=== PATIENT | female | born 1935 | race Caucasian/White ===

== ENCOUNTER 2023-11-23 12:59 | Outpatient (AMB) | payer MEDICARE, SELFPAY ==
[2023-11-23 13:08] VITALS: BP 131/69; PULSE 76; O2SAT 97; BMI 21.1
--- NOTE | 2023-11-23 13:08 | A.OFFVIS_ITS ---
Vital Signs 11/23/23 13:08 Height 5 ft 7 in Weight 135 lb BMI 21.1 BP 131/69 Blood Pressure Location Rt brachial Position Sitting Pulse 76 Pulse Source Pulse Oximeter Pulse Oximetry (%) 97 Oxygen Delivery Method Room Air Intake Visit Reasons: Postherpetic neuralgia Allergies No Known Allergies Allergy (Verified 11/23/23 13:07) Medication List - Last Reconciled 11/23/23 by Melissa Miguel acetaminophen 500 mg PO Q6H PRN amitriptyline 25 mg PO DAILY pregabalin (Lyrica) 75 mg PO TID HPI Comments Details: Jennifer is a very pleasant 88-year-old female who presents to the office today for evaluation management of her post herpetic neuralgia Patient diagnosed with shingles September 18 2023. She was immediately started on antivirals which she has completed. Reports that she has continued with burning, stinging pain to the left thoracic area with radiation around to the breast and down the back of her left arm. Pain today is 1/10, she does report that her pain is intermittent and at times will be 8/10. Pain comes and goes without warning. She has been taking Lyrica and amitriptyline with some improvement. Her daughter reports that patient is having some memory difficulty while taking these medications and is hoping that they can get her off of them as soon as possible. Patient resides in a intermediate facility where she has staff who helps her with activities of daily living. They have started acupuncture, her initial visit was today. In terms of muscle damage condition is described as stabbing, piercing, burning, radiating Pain is negatively impacting patient's enjoyment of life, general activity, sleep and ability to perform her duties daily living Review of Systems Const All systems reviewed & are unremarkable except as noted in HPI and below Physical Exam Vital Signs: Last Vital Signs Pulse 76 11/23/23 13:08 BP 131/69 11/23/23 13:08 Pulse Ox 97 11/23/23 13:08 Oxygen Delivery Method Room Air 11/23/23 13:08 BMI result Body Mass Index 21.1 General: awake, alert, oriented. Answers questions appropriately. Fully engaged in examination. Skin: warm, dry, intact. Faint hyperpigmentation over left upper back and down the back of the left arm. No visible wounds, blisters, rashes. HEENT: Normocephalic. Hearing intact. Cardiac: External chest normal in appearance. Respiratory: No cough, audible wheezing or stridor. Abdomen: without gross distension. MS: No obvious swelling or deformities. Neurological: Oriented to person, place, time and situation. Thought process intact. No gait abnormalities appreciated. Psychiatric: Appropriate mood and affect. Good judgment and insight. Assessment & Plan Assessment & Plan (1) Post herpetic neuralgia: Code(s): B02.29 - Other postherpetic nervous system involvement Category: Medical Plan Jennifer is a very pleasant 88-year-old female who presented to the office today, accompanied by her daughter, for evaluation management of her chronic post herpetic neuralgia pain Lengthy discussion today with the patient and her daughter regarding diagnosis and treatment options including topical capsaicin application, diagnostic injections, therapeutic injections, peripheral nerve stimulators and permanent neuromodulation. Continue with acupuncture as planned Continue with meds as prescribed by PCP After lengthy discussion they would like to proceed with diagnostic nerve block. Will schedule for fluoroscopy guided diagnostic left [id number]-T2 MBBs with local anesthetic. All questions and concerns were answered, patient and daughter agree with the plan. Follow up after diagnostic injections, sooner if needed Coding Level of Care Code New Pt Level 4 (92726) Complex EM visit Add On G2211 Diagnoses Post herpetic neuralgia B02.29
== END 2023-11-23 13:59 | disposition home or self-care (01) ==
PROVIDERS: PCP Internal Medicine; Visit Provider Registered Nurse Emergency
DX: B02.29 Other postherpetic nervous system involvement (principal)
CPT/HCPCS: 99204; G2211

== ENCOUNTER → 2023-11-23 12:59 | Outpatient (BNVA) | payer MEDICARE, SELFPAY | PROVIDERS: PCP Internal Medicine; Visit Provider Registered Nurse Emergency | DX: B02.29 Other postherpetic nervous system involvement (principal) | CPT/HCPCS: 99202 ==